=== PATIENT | male | born 1930 | race Caucasian/White ===

== ENCOUNTER 2018-10-28 21:45 | Emergency (ER) | payer OTHER, MEDICARE ==
[2018-10-28 22:17] VITALS: BP 159/66; PULSE 60; TEMP 98.2; BMI 25.0
[2018-10-28] MEDS ORDERED: LIDOCAINE 1%-EPI 1:100,000 30 ML MDV IJ ONE (22:47)
[2018-10-28] MEDS ORDERED: ACETAMINOPHEN 650 MG/20.3 ML ORAL SOLUTION (CUPS) PO ONE (23:21)
[2018-10-28] MEDS ORDERED: ACETAMINOPHEN 325 MG TABLET (FP) ONE (23:21)
--- NOTE | 2018-10-28 23:21 | PDOC ---
History of Present Illness - General Chief Complaint: Injury Stated Complaint: FALL Time Seen by Provider: 10/28/18 22:51 Past History - Suicide/Smoking/Psychosocial Hx Smoking History: Never smoked Hx Alcohol Use: No Drug/Substance Use Hx: No *Physical Exam - Vital Signs Last Vital Signs Temp Pulse Resp BP Pulse Ox 98.2 F 60 19 159/66 98 10/28/18 22:12 10/28/18 22:12 10/28/18 22:12 10/28/18 22:12 10/28/18 22:12 *DC/Admit/Observation/Transfer Diagnosis at time of Disposition: Laceration Shoulder pain Qualifiers: Chronicity: acute Laterality: right Qualified Code(s): M25.511 - Pain in right shoulder - Discharge Dispostion Disposition: HOME Condition at time of disposition: Stable Decision to Admit order: No - Referrals Referrals: Ray Toro MD [Staff Physician] - Mark Pena MD [Staff Physician] - - Patient Instructions Printed Discharge Instructions: DI for Laceration Repair Additional Instructions: You were evaluated for your laceration and shoulder pain You had stitches placed by Dr. Toro Please follow up in his office on Friday to have the stitches removed Keep the area clean and dry. Pat dry, be mindful when brushing your teeth Please follow up with orthopedics tomorrow for re-evaluation of your shoulder pain. Return to the ER for worsening shoulder pain, redness to the site, purulent discharge, or if you have any changes in your symptoms - Post Discharge Activity
== END 2018-10-28 23:45 | disposition home or self-care (01) ==
LOC: JERFT 21:45
PROC: 0JQ10ZZ Repair Face Subcutaneous Tissue and Fascia, Open Approach (ICD-10-PCS; principal; 2018-10-28)
DX: S01.511A Laceration without foreign body of lip, initial encounter (principal); M25.511 Pain in right shoulder; W19.XXXA Unspecified fall, initial encounter; Y93.89 Activity, other specified; Y92.89 Other specified places as the place of occurrence of the external cause; Y99.8 Other external cause status
CPT/HCPCS: 99281-25